=== PATIENT | male | born 1970 | race Asian ===

== ENCOUNTER 2016-12-17 05:45 | Emergency (ER) | payer BC ==
[~2016-12-17] VITALS: Ht 185.4 cm; Wt 97.5 kg
[2016-12-17 05:55] VITALS: BP 137/82; PULSE 86; RESP 16; TEMP 98.3; O2SAT 98
--- NOTE | 2016-12-17 05:55 | NUR ---
Placed in room 8 . Placed on tax director, blood pressure machine and pulse oximeter. To gown for exam. Side rails up.
--- NOTE | 2016-12-17 06:00 | NUR ---
Pt presents to ED with c/o generalized rashes at upper body and extremities, itchy per Pt. A&Ox4, denies SOB or chestpain, denies N/V/D. Skin intact. Will continue to monitor
--- NOTE | 2016-12-17 06:07 | NUR ---
ER at bedside examining patient.
--- NOTE | 2016-12-17 06:10 | NUR ---
Genet bird in ED - 12/17/16 at 0611 by [email or web address] MD couch at bedside examining pt
--- NOTE | 2016-12-17 06:17 | NUR ---
Patient given written and verbal discharge instructions and verbalizes understanding. ER MD Farooq discussed with patient the results and treatment provided. Patient in stable condition. ID arm band removed. Rx of prednisone given. Patient educated on pain management and to follow up with PMD. Pain Scale 0/10 Opportunity for questions provided and answered.
== END 2016-12-17 06:17 | disposition home or self-care (01) ==
LOC: SED 05:45
DX: L50.9 Urticaria, unspecified (principal); E11.9 Type 2 diabetes mellitus without complications
CPT/HCPCS: 99283